=== PATIENT | male | born 1970 | race Hispanic/Latino ===

== ENCOUNTER 2017-06-29 12:32 | Emergency (ER) | payer SELFPAY ==
[~2017-06-29] VITALS: Ht 167.6 cm; Wt 79.0 kg
[~2017-06-29 12:32] MED LIST: NO CURRENT MEDS; PRILOSEC20 MG/CAP PO; PROTONIX40 MG PO
[2017-06-29] MEDS ORDERED: NAPROSYN500 MG PO (14:25)
[2017-06-29 14:28] VITALS: BP 119/83
== END 2017-06-29 14:38 | disposition home or self-care (01) | DRG 93 ==
LOC: ED 12:32
DX: G89.29 Other chronic pain (principal); M25.512 Pain in left shoulder; M54.5 Low back pain

== ENCOUNTER 2019-07-25 00:35 | Emergency (ER) | payer SELFPAY ==
[~2019-07-25] VITALS: Ht 167.6 cm; Wt 80.0 kg
[~2019-07-25 00:35] MED LIST changes: +NAPROSYN500 MG PO
[2019-07-25 01:19] LABS: HEMATOCRIT 42.4 % (39.0-50.0); HEMOGLOBIN 14.3 g/dl (14.0-18.0); IMMATURE GRANULOCYTES 0.3 % (0.0-5.0); MEAN CELL VOLUME 85.5 fL CALC (80.0-100.0); MEAN CORPUSCULAR HGB 28.8 pG CALC (26.0-32.0); MEAN CORPUSCULAR HGB CONC 33.7 g/L CALC (32.0-36.0); NEUT# 5.41 thou/uL (1.82-7.42); RED BLOOD COUNT 4.96 mill/uL (4.70-6.10); RED CELL DISTRI WIDTH 12.9 % (11.5-15.5)
[2019-07-25 01:32] LABS: ALBUMIN 4.8 g/dL (3.2-5.0); ALKALINE PHOSPHATASE 78 u/l (38-126); AMYLASE 52 u/l (30-110); ANION GAP 18 (6-22 (CALC)); BILIRUBIN, TOTAL 0.3 mg/dL (0.0-1.4); BUN 20 mg/dL (9-20); BUN/CREATININE RATIO 29 (12-20 (CALC)); CARBON DIOXIDE 27 mmol/l (22-30); CHLORIDE 101 mmol/l (95-108); CREATININE 0.7 mg/dL (0.7-1.3); GFR > 60 ML/MIN (>=60 (CALC)); GFR FOR AFR.AMER. > 60 ML/MIN (>=60 (CALC)); LIPASE 100 u/l (23-300); POTASSIUM 3.7 mmol/l (3.5-5.1); SGOT/AST 24 u/l (17-59); SODIUM 142 mmol/l (137-146); TOTAL PROTEIN 8.6 g/dL (6.3-8.2)
[2019-07-25 01:44] LABS: MYOGLOBIN 23 ng/mL (0 - 121)
[2019-07-25 02:40] LABS: URINE BILIRUBIN - DIPSTICK NEGATIVE (NEGATIVE); URINE BLOOD DIPSTICK NEGATIVE (NEGATIVE); URINE COLOR YELLOW; URINE GLUCOSE - DIPSTICK NEGATIVE (NEGATIVE); URINE KETONE NEGATIVE (NEGATIVE); URINE LEUK ESTERASE NEGATIVE (NEGATIVE); URINE NITRITE - DIPSTICK NEGATIVE (Negative); URINE PROTEIN - DIPSTICK TRACE mg/dL (NEG-TRACE); URINE UROBILINOGEN - DIPSTICK 0.2 E.U./dL (0.2)
[2019-07-25] MEDS ORDERED: ONDANSETRON4 MG PO (02:56)
[2019-07-25] MEDS ORDERED: ULTRAM50 M1 PO (02:56)
[2019-07-25 03:10] VITALS: BP 105/59
== END 2019-07-25 03:10 | disposition home or self-care (01) | DRG 866 ==
LOC: ED 00:35
PROVIDERS: Emergency Medicine
DX: B34.9 Viral infection, unspecified (principal)

== ENCOUNTER 2021-01-16 20:16 | Emergency (ER) | payer SELFPAY ==
[~2021-01-16 20:16] MED LIST changes: +ONDANSETRON4 MG PO; +ULTRAM50 M1 PO
[2021-01-16 23:45] VITALS: BP 120/77
== END 2021-01-16 23:53 | disposition home or self-care (01) | DRG 605 ==
LOC: ED 20:16
DX: S01.01XA Laceration without foreign body of scalp, initial encounter (principal); W18.39XA Other fall on same level, initial encounter; Y93.89 Activity, other specified; Y92.89 Other specified places as the place of occurrence of the external cause; Y99.0 Civilian activity done for income or pay

== ENCOUNTER 2021-10-12 22:57 | Emergency (ER) | payer SELFPAY ==
[~2021-10-12] VITALS: Ht 167.6 cm; Wt 72.3 kg
[2021-10-13] MEDS ORDERED: ZPAK PO (03:43)
[2021-10-13 04:05] VITALS: BP 136/82
[2021-10-14] MEDS ORDERED: PEPCID40 MG PO (21:43)
[2021-10-14] MEDS ORDERED: ZOFRAN4 MG/TAB PO (21:43)
[2021-10-14] MEDS ORDERED: CARAFATE PO (21:43)
== END 2021-10-13 04:44 | disposition home or self-care (01) | DRG 179 ==
LOC: ED 22:57
DX: U07.1 COVID-19 (principal)

== ENCOUNTER 2021-10-14 17:44 | Emergency (ER) | payer SELFPAY ==
[~2021-10-14] VITALS: Ht 167.6 cm; Wt 100.0 kg
[~2021-10-14 17:44] MED LIST changes: +ZPAK PO
[2021-10-14 19:29] LABS: HEMATOCRIT 45.3 % (39.0-50.0); IMMATURE GRANULOCYTES 0.2 % (0.0-5.0); MEAN CELL VOLUME 86.8 fL CALC (80.0-100.0); MEAN CORPUSCULAR HGB 28.7 pG CALC (26.0-32.0); MEAN CORPUSCULAR HGB CONC 33.1 g/dL CAL (32.0-36.0); NEUT# 3.89 thou/uL (1.82-7.42); RED BLOOD COUNT 5.22 mill/uL (4.70-6.10); RED CELL DISTRI WIDTH 12.6 % (11.5-15.5); URINE BILIRUBIN - DIPSTICK NEGATIVE (NEGATIVE); URINE BLOOD DIPSTICK TRACE-INTACT (NEGATIVE); URINE COLOR YELLOW; URINE GLUCOSE - DIPSTICK NEGATIVE (NEGATIVE); URINE KETONE NEGATIVE (NEGATIVE); URINE LEUK ESTERASE NEGATIVE (NEGATIVE); URINE PROTEIN - DIPSTICK NEGATIVE (NEG-TRACE); URINE SPECIFIC GRAVITY 1.025; URINE UROBILINOGEN - DIPSTICK 0.2 E.U./dL (0.2)
[2021-10-14 19:30] LABS: URINE NITRITE - DIPSTICK NEGATIVE (Negative)
[2021-10-14 19:45] LABS: ALBUMIN 4.5 g/dL (3.2-5.0); ALKALINE PHOSPHATASE 91 u/l (38-126); AMYLASE 63 u/l (30-110); ANION GAP 15 (6-22 (CALC)); BILIRUBIN, TOTAL 0.5 mg/dL (0.0-1.4); BUN 9 mg/dL (9-20); BUN/CREATININE RATIO 15 (12-20 (CALC)); CARBON DIOXIDE 26 mmol/l (22-30); CHLORIDE 97 mmol/l (95-108); CREATININE 0.6 mg/dL (0.7-1.3); GFR > 60 ML/MIN (>=60 (CALC)); GFR FOR AFR.AMER. > 60 ML/MIN (>=60 (CALC)); LIPASE 100 u/l (23-300); POTASSIUM 3.9 mmol/l (3.5-5.1); SGOT/AST 31 u/l (17-59); SODIUM 134 mmol/l (137-146); TOTAL PROTEIN 8.5 g/dL (6.3-8.2)
[2021-10-14] MEDS ORDERED: PEPCID40 MG PO (21:43)
[2021-10-14] MEDS ORDERED: CARAFATE PO (21:43)
[2021-10-14] MEDS ORDERED: ZOFRAN4 MG/TAB PO (21:43)
[2021-10-14 22:04] VITALS: BP 183/91
== END 2021-10-14 22:04 | disposition home or self-care (01) | DRG 179 ==
LOC: ED 17:44
PROVIDERS: Emergency Medicine
DX: U07.1 COVID-19 (principal); K29.00 Acute gastritis without bleeding

== ENCOUNTER 2022-05-11 23:41 | Emergency (ER) | payer SELFPAY ==
[~2022-05-11] VITALS: Ht 165.1 cm; Wt 77.0 kg
[~2022-05-11 23:41] MED LIST changes: +CARAFATE PO; +PEPCID40 MG PO; +ZOFRAN4 MG/TAB PO
[2022-05-12] VITALS (12 sets, daily range): BP systolic 100–129; BP diastolic 70–87
[2022-05-12 03:00] LABS: IMMATURE GRANULOCYTES 0.2 % (0.0-5.0); MEAN CELL VOLUME 85.7 fL CALC (80.0-100.0); MEAN CORPUSCULAR HGB 29.4 pG CALC (26.0-32.0); MEAN CORPUSCULAR HGB CONC 34.3 g/dL CAL (32.0-36.0); NEUT# 2.45 thou/uL (1.82-7.42); RED BLOOD COUNT 4.35 mill/uL (4.70-6.10); RED CELL DISTRI WIDTH 12.9 % (11.5-15.5)
[2022-05-12 03:04] LABS: HEMATOCRIT 37.3 % (39.0-50.0); HEMOGLOBIN 12.8 g/dl (14.0-18.0)
[2022-05-12 03:44] LABS: ALBUMIN 3.8 g/dL (3.2-5.0); ALKALINE PHOSPHATASE 69 u/l (38-126); AMYLASE 64 u/l (30-110); ANION GAP 8 (6-22 (CALC)); BUN 17 mg/dL (9-20); BUN/CREATININE RATIO 22 (12-20 (CALC)); CARBON DIOXIDE 26 mmol/l (22-30); CHLORIDE 107 mmol/l (95-108); CREATININE 0.8 mg/dL (0.7-1.3); GFR FOR AFR.AMER. > 60 ML/MIN (>=60 (CALC)); GFR OTHER RACES > 60 ML/MIN (>=60 (CALC)); LIPASE 142 u/l (23-300); POTASSIUM 3.5 mmol/l (3.5-5.1); SGOT/AST 19 u/l (17-59); SODIUM 137 mmol/l (137-146); TOTAL PROTEIN 6.9 g/dL (6.3-8.2)
[2022-05-12 03:45] LABS: BILIRUBIN, TOTAL 0.2 mg/dL (0.0-1.4)
[2022-05-12 03:54] LABS: MYOGLOBIN 17 ng/mL (0 - 121)
[2022-05-12 04:44] LABS: URINE BILIRUBIN - DIPSTICK NEGATIVE (NEGATIVE); URINE BLOOD DIPSTICK NEGATIVE (NEGATIVE); URINE COLOR YELLOW; URINE GLUCOSE - DIPSTICK NEGATIVE (NEGATIVE); URINE KETONE NEGATIVE (NEGATIVE); URINE LEUK ESTERASE NEGATIVE (NEGATIVE); URINE PROTEIN - DIPSTICK NEGATIVE (NEG-TRACE); URINE SPECIFIC GRAVITY >=1.030; URINE UROBILINOGEN - DIPSTICK 0.2 E.U./dL (0.2)
[2022-05-12 04:47] LABS: URINE NITRITE - DIPSTICK NEGATIVE (Negative)
[2022-05-12] MEDS ORDERED: PREVACID30 M3 PO (06:17)
[2022-05-12] MEDS ORDERED: ULTRAM50 M1 PO (06:19)
== END 2022-05-12 06:42 | disposition home or self-care (01) | DRG 392 ==
LOC: ED 23:41
PROVIDERS: Emergency Medicine
DX: R10.33 Periumbilical pain (principal); Z20.822 Contact with and (suspected) exposure to COVID-19
CPT/HCPCS: Q9967

== ENCOUNTER 2022-11-20 18:15 | Emergency (ER) | payer OTHER ==
[~2022-11-20] VITALS: Ht 165.1 cm; Wt 80.0 kg
[~2022-11-20 18:15] MED LIST changes: +PREVACID30 M3 PO
[2022-11-20] MEDS ORDERED: AMOX/K CLAV875 M1 PO (20:16)
[2022-11-20] MEDS ORDERED: NAPROXEN500 MG PO (20:17)
[2022-11-20 20:46] VITALS: BP 127/78
== END 2022-11-20 21:06 | disposition home or self-care (01) ==
LOC: ED 18:15
DX: S71.152A Open bite, left thigh, initial encounter (principal); W54.0XXA Bitten by dog, initial encounter

== ENCOUNTER 2022-12-19 04:00 | Emergency (ER) | payer OTHER ==
[2022-12-19] VITALS (10 sets, daily range): BP systolic 50–139; BP diastolic 37–91
[~2022-12-19] VITALS: Ht 165.1 cm; Wt 77.0 kg
[~2022-12-19 04:00] MED LIST changes: +AMOX/K CLAV875 M1 PO; +NAPROXEN500 MG PO
[2022-12-19 04:46] LABS: BASO% 1.1 % (0-3); EOS% 6.2 % (0-8); HEMATOCRIT 43.1 % (39.0-50.0); HEMOGLOBIN 14.4 g/dl (14.0-18.0); IMMATURE GRANULOCYTES 0.4 % (0.0-5.0); MEAN CELL VOLUME 86.5 fL CALC (80.0-100.0); MEAN CORPUSCULAR HGB 28.9 pG CALC (26.0-32.0); MEAN CORPUSCULAR HGB CONC 33.4 g/dL CAL (32.0-36.0); MONO% 8.5 % (2-13); NEUT# 2.81 thou/uL (1.82-7.42); NEUT% 52.8 % (42-76); RED BLOOD COUNT 4.98 mill/uL (4.70-6.10); RED CELL DISTRI WIDTH 12.8 % (11.5-15.5)
[2022-12-19 04:59] LABS: ALBUMIN 4.4 g/dL (3.2-5.0); ALKALINE PHOSPHATASE 77 u/l (38-126); AMYLASE 46 u/l (30-110); ANION GAP 12 (6-22 (CALC)); BILIRUBIN, TOTAL 0.2 mg/dL (0.2-1.3); BUN 23 mg/dL (9-20); BUN/CREATININE RATIO 26 (12-20 (CALC)); CARBON DIOXIDE 25 mmol/l (22-30); CHLORIDE 107 mmol/l (95-108); CREATININE 0.9 mg/dL (0.7-1.3); GFR FOR AFR.AMER. > 60 ML/MIN (>=60 (CALC)); GFR OTHER RACES > 60 ML/MIN (>=60 (CALC)); LIPASE 160 u/l (23-300); POTASSIUM 3.7 mmol/l (3.5-5.1); SGOT/AST 28 u/l (17-59); SODIUM 140 mmol/l (137-146); TOTAL PROTEIN 7.4 g/dL (6.3-8.2)
[2022-12-19 06:41] LABS: URINE BILIRUBIN - DIPSTICK NEGATIVE (NEGATIVE); URINE BLOOD DIPSTICK NEGATIVE (NEGATIVE); URINE COLOR YELLOW; URINE GLUCOSE - DIPSTICK NEGATIVE (NEGATIVE); URINE KETONE NEGATIVE (NEGATIVE); URINE LEUK ESTERASE NEGATIVE (NEGATIVE); URINE PH 5.5 (4.5-8.0); URINE PROTEIN - DIPSTICK NEGATIVE (NEG-TRACE); URINE SPECIFIC GRAVITY >=1.030; URINE UROBILINOGEN - DIPSTICK 0.2 E.U./dL (0.2)
[2022-12-19 06:50] LABS: URINE NITRITE - DIPSTICK NEGATIVE (Negative)
== END 2022-12-19 09:57 | disposition home or self-care (01) | DRG 313 ==
LOC: ED 04:00
PROVIDERS: Emergency Medicine
DX: R07.9 Chest pain, unspecified (principal); Z20.822 Contact with and (suspected) exposure to COVID-19; J06.9 Acute upper respiratory infection, unspecified; K21.9 Gastro-esophageal reflux disease without esophagitis